=== PATIENT | female | born 1935 | race Asian ===

== ENCOUNTER 2018-04-18 20:11 | Inpatient (IN) | payer OTHER, MEDICAID ==
[2018-04-18] MEDS: ONDANSETRON 4 MG INJ IV (21:25)
[2018-04-18] MEDS: CEFEPIME 1GM/50 ML (PMX) 50 ML IVPB (21:25)
[2018-04-18] MEDS: morphine 4 MG/ML VIAL IV (21:25)
[2018-04-18 21:28] LABS: ADD MAN DIFF? NO
[2018-04-18 21:30] LABS: WHITE BLOOD COUNT 9.6 10^3/ul (4.8-10.8)
[2018-04-18 21:30] LABS: BASOPHIL # 0.1 10^3/ul (0.0-0.1); BASOPHILS % 0.5 % (0.0-2.0); EOSINOPHILS # 0.3 10^3/ul (0.0-0.5); EOSINOPHILS % 2.6 % (0.0-7.0); HEMATOCRIT 35.8 % (37.0-47.0); HEMOGLOBIN 11.2 g/dl (12.0-16.0); LYMPHOCYTES # 1.4 10^3/ul (0.8-2.9); MEAN CORPUSCULAR HEMOGLOBIN 27.7 pg (29.0-33.0); MEAN CORPUSCULAR HGB CONC 31.3 g/dl (32.0-37.0); MEAN CORPUSCULAR VOLUME 88.4 fl (82.0-101.0); MEAN PLATELET VOLUME 9.9 fl (7.4-10.4); MONOCYTE # 0.8 10^3/ul (0.3-0.9); MONOCYTES % 8.3 % (0.0-11.0); NEUTROPHILS % 72.8 % (39.0-77.0); PLATELET COUNT 385 10^3/UL (140-415); RED BLOOD COUNT 4.05 10^6/ul (4.20-5.40); RED CELL DISTRIBUTION WIDTH 13.3 % (11.5-14.5)
[2018-04-18 21:59] LABS: ALANINE AMINOTRANSFERASE 27 IU/L (13-69); ALBUMIN 3.2 g/dl (3.3-4.9); ALBUMIN/GLOBULIN RATIO 0.88; ALKALINE PHOSPHATASE 140 IU/L (42-121); ANION GAP 11 (8-16); ASPARTATE AMINO TRANSFERASE 29 IU/L (15-46); BILIRUBIN,INDIRECT 0.2 mg/dl (0-1.1); BILIRUBIN,TOTAL 0.2 mg/dl (0.2-1.3); BLOOD UREA NITROGEN 19 mg/dl (7-20); CALCIUM 8.4 mg/dl (8.4-10.2); CARBON DIOXIDE 32 mmol/L (21-31); CHLORIDE 99 mmol/L (97-110); CREATININE 0.86 mg/dl (0.44-1.00); GLUCOSE 210 mg/dl (70-220); POTASSIUM 4.7 mmol/L (3.5-5.1); SODIUM 137 mmol/L (135-144); TOTAL PROTEIN 6.8 g/dl (6.1-8.1)
[2018-04-18] MEDS: VANCOMYCIN 1 GM (PMX) 250 ML IVPB (22:18)
[2018-04-18] MEDS: SOD CHLORIDE 0.9% 1,000 ML IV (22:21)
[2018-04-18] MEDS ORDERED: ONDANSETRON 4 MG INJ IV (22:30)
[2018-04-18] MEDS ORDERED: ACETAMINOPHEN 325 MG TAB PO (22:30)
[2018-04-19] MEDS ORDERED: ACETAMINOPHEN 325 MG TAB PO (00:30)
[2018-04-19] MEDS ORDERED: ONDANSETRON 4 MG INJ IV (00:30)
[2018-04-19] MEDS ORDERED: ZOLPIDEM 5 MG TAB PO (00:30)
[2018-04-19] MEDS ORDERED: VANCOMYCIN IV PER PHARMACY XX (00:30)
[2018-04-19] MEDS ORDERED: morphine LIQ (10 MG/5 ML) CUP PO (00:30)
[2018-04-19] MEDS ORDERED: GLUCOSE GEL 15 GRAM TUBE PO ×2 (01:00)
[2018-04-19] MEDS ORDERED: DEXTROSE 50% 50 ML SYRINGE IV ×2 (01:00)
[2018-04-19] MEDS ORDERED: GLUCAGON 1 MG INJ IM (01:00)
[2018-04-19] MEDS ORDERED: GLUCOSE GEL 15 GRAM TUBE BUCCAL (01:00)
[2018-04-19] MEDS: SOD CHLORIDE 0.9% 1,000 ML IV ×2 (01:35→11:41)
[2018-04-19] MEDS: INSULIN ASPART [NOVOLOG] 3 ML PEN SC ×6 (01:43→21:08)
[2018-04-19] MEDS: ACCU-CHEK XX (02:00)
[2018-04-19] MEDS: PIPER-TAZO 2.25 GM (PMX) 50 ML IVPB ×3 (05:26→21:03)
[2018-04-19 05:52] LABS: ADD MAN DIFF? NO
[2018-04-19 06:02] LABS: WHITE BLOOD COUNT 9.1 10^3/ul (4.8-10.8)
[2018-04-19 06:02] LABS: BASOPHIL # 0.1 10^3/ul (0.0-0.1); BASOPHILS % 0.9 % (0.0-2.0); EOSINOPHILS # 0.3 10^3/ul (0.0-0.5); EOSINOPHILS % 2.9 % (0.0-7.0); HEMATOCRIT 36.3 % (37.0-47.0); HEMOGLOBIN 11.5 g/dl (12.0-16.0); LYMPHOCYTES # 1.6 10^3/ul (0.8-2.9); LYMPHOCYTES % 17.3 % (15.0-51.0); MEAN CORPUSCULAR HEMOGLOBIN 27.8 pg (29.0-33.0); MEAN CORPUSCULAR HGB CONC 31.7 g/dl (32.0-37.0); MEAN CORPUSCULAR VOLUME 87.9 fl (82.0-101.0); MEAN PLATELET VOLUME 9.8 fl (7.4-10.4); MONOCYTE # 0.9 10^3/ul (0.3-0.9); MONOCYTES % 9.7 % (0.0-11.0); NEUTROPHIL # 6.2 10^3/ul (1.6-7.5); NEUTROPHILS % 68.5 % (39.0-77.0); PLATELET COUNT 383 10^3/UL (140-415); RED BLOOD COUNT 4.13 10^6/ul (4.20-5.40); RED CELL DISTRIBUTION WIDTH 13.5 % (11.5-14.5)
[2018-04-19 06:30] LABS: ALANINE AMINOTRANSFERASE 26 IU/L (13-69); ALBUMIN 3.3 g/dl (3.3-4.9); ALBUMIN/GLOBULIN RATIO 0.89; ALKALINE PHOSPHATASE 141 IU/L (42-121); ANION GAP 12 (8-16); ASPARTATE AMINO TRANSFERASE 26 IU/L (15-46); BILIRUBIN,INDIRECT 0.3 mg/dl (0-1.1); BILIRUBIN,TOTAL 0.3 mg/dl (0.2-1.3); BLOOD UREA NITROGEN 16 mg/dl (7-20); CALCIUM 8.6 mg/dl (8.4-10.2); CARBON DIOXIDE 31 mmol/L (21-31); CHLORIDE 103 mmol/L (97-110); CREATININE 0.78 mg/dl (0.44-1.00); GLUCOSE 139 mg/dl (70-220); POTASSIUM 4.3 mmol/L (3.5-5.1); SODIUM 142 mmol/L (135-144)
[2018-04-19] MEDS: NEUTRA-PHOS 250 MG PACKET PO ×4 (08:03→17:24)
[2018-04-19] MEDS: MAGNESIUM OXIDE 400 MG TAB PO ×2 (09:00→21:05)
[2018-04-19] MEDS: PENTOXIFYLLINE (SR) 400 MG TAB PO (09:00)
[2018-04-19] MEDS: GABAPENTIN 300 MG CAP PO ×2 (09:06→21:04)
[2018-04-19] MEDS: METOPROLOL 25 MG TAB PO ×2 (09:06→21:12)
[2018-04-19] MEDS: LISINOPRIL 20 MG TAB PO (09:06)
[2018-04-19 17:24] LABS: INR 1.03; PROTIME 13.6 Sec (11.9-14.9); PT RATIO 1.1
[2018-04-19 17:25] LABS: PARTIAL THROMBOPLASTIN TIME 40.3 Sec (25.0-35.0)
[2018-04-19] MEDS: ATORVASTATIN 40 MG TAB PO (21:03)
[2018-04-19] MEDS: FAMOTIDINE 20 MG TAB PO (21:04)
[2018-04-19] MEDS: VANCOMYCIN 750 MG in DEXTROSE 5% 150 ML IVPB (22:17)
[2018-04-20] MEDS: INSULIN ASPART [NOVOLOG] 3 ML PEN SC ×6 (01:23→21:00)
[2018-04-20] MEDS: ACCU-CHEK XX (01:25)
[2018-04-20] MEDS: PIPER-TAZO 2.25 GM (PMX) 50 ML IVPB ×3 (05:48→22:18)
[2018-04-20] MEDS: SOD CHLORIDE 0.9% 1,000 ML IV ×3 (05:48→14:04)
[2018-04-20 06:07] LABS: ADD MAN DIFF? NO
[2018-04-20 06:11] LABS: WHITE BLOOD COUNT 7.9 10^3/ul (4.8-10.8)
[2018-04-20 06:11] LABS: BASOPHIL # 0.1 10^3/ul (0.0-0.1); EOSINOPHILS # 0.2 10^3/ul (0.0-0.5); HEMATOCRIT 36.6 % (37.0-47.0); HEMOGLOBIN 11.5 g/dl (12.0-16.0); LYMPHOCYTES # 1.4 10^3/ul (0.8-2.9); LYMPHOCYTES % 17.9 % (15.0-51.0); MEAN CORPUSCULAR HEMOGLOBIN 27.9 pg (29.0-33.0); MEAN CORPUSCULAR HGB CONC 31.4 g/dl (32.0-37.0); MEAN CORPUSCULAR VOLUME 88.8 fl (82.0-101.0); MONOCYTE # 0.8 10^3/ul (0.3-0.9); MONOCYTES % 10.7 % (0.0-11.0); NEUTROPHIL # 5.3 10^3/ul (1.6-7.5); NEUTROPHILS % 66.9 % (39.0-77.0); PLATELET COUNT 387 10^3/UL (140-415); RED BLOOD COUNT 4.12 10^6/ul (4.20-5.40); RED CELL DISTRIBUTION WIDTH 13.4 % (11.5-14.5)
[2018-04-20 06:35] LABS: ANION GAP 11 (8-16); BLOOD UREA NITROGEN 13 mg/dl (7-20); CALCIUM 8.7 mg/dl (8.4-10.2); CARBON DIOXIDE 32 mmol/L (21-31); CHLORIDE 106 mmol/L (97-110); GLUCOSE 138 mg/dl (70-220); POTASSIUM 4.4 mmol/L (3.5-5.1); SODIUM 145 mmol/L (135-144)
[2018-04-20 06:38] LABS: MAGNESIUM 1.9 mg/dl (1.7-2.5)
[2018-04-20 06:38] LABS: PHOSPHORUS 3.5 mg/dl (2.5-4.9)
[2018-04-20 07:08] LABS: HEMOGLOBIN A1C 6.7 % (0-5.9)
[2018-04-20] MEDS: NEUTRA-PHOS 250 MG PACKET PO ×3 (08:15→18:00)
[2018-04-20] MEDS: METOPROLOL 25 MG TAB PO ×2 (08:50→21:20)
[2018-04-20] MEDS: MAGNESIUM OXIDE 400 MG TAB PO ×2 (08:55→21:20)
[2018-04-20] MEDS: GABAPENTIN 300 MG CAP PO ×2 (08:55→21:20)
[2018-04-20] MEDS: LISINOPRIL 20 MG TAB PO (08:56)
[2018-04-20] MEDS: PENTOXIFYLLINE (SR) 400 MG TAB PO (08:56)
[2018-04-20] MEDS: HYDROCODONE/APAP (5/325) TAB PO ×3 (09:49→21:15)
[2018-04-20] MEDS ORDERED: HEPARIN 1000 UNITS/ML 10 ML INJ (11:44)
[2018-04-20] MEDS ORDERED: IODIXANOL LOCM 100 ML BTL (11:44)
[2018-04-20] MEDS ORDERED: HEPARIN 1000 UNITS/NS (A-LINE) 1,000 ML (11:44)
[2018-04-20] MEDS ORDERED: MIDAZOLAM 1 MG/ML 2 ML INJ (11:44)
[2018-04-20] MEDS ORDERED: FENTAnyl 50 MCG/ML VIAL (11:44)
[2018-04-20] MEDS ORDERED: LIDOCAINE 1% (MDV) 20 ML INJ (11:44)
[2018-04-20] MEDS ORDERED: IODIXANOL LOCM 50 ML BTL (13:34)
[2018-04-20] MEDS: ATORVASTATIN 40 MG TAB PO (21:19)
[2018-04-20] MEDS: FAMOTIDINE 20 MG TAB PO (21:20)
[2018-04-20] MEDS: VANCOMYCIN 750 MG in DEXTROSE 5% 150 ML IVPB (23:15)
[2018-04-21] MEDS: ACCU-CHEK XX (02:00)
[2018-04-21] MEDS: SOD CHLORIDE 0.9% 1,000 ML IV ×2 (02:30→06:30)
[2018-04-21] MEDS: PIPER-TAZO 2.25 GM (PMX) 50 ML IVPB ×2 (06:26→14:19)
[2018-04-21] MEDS: INSULIN ASPART [NOVOLOG] 3 ML PEN SC ×2 (08:15→12:51)
[2018-04-21] MEDS: NEUTRA-PHOS 250 MG PACKET PO ×2 (08:21→12:15)
[2018-04-21] MEDS: PENTOXIFYLLINE (SR) 400 MG TAB PO (08:21)
[2018-04-21] MEDS: GABAPENTIN 300 MG CAP PO (08:21)
[2018-04-21] MEDS: MAGNESIUM OXIDE 400 MG TAB PO (08:22)
[2018-04-21] MEDS: METOPROLOL 25 MG TAB PO (08:23)
[2018-04-21] MEDS: LISINOPRIL 20 MG TAB PO (08:23)
[2018-04-21 08:28] LABS: ADD MAN DIFF? NO
[2018-04-21 08:31] LABS: WHITE BLOOD COUNT 8.1 10^3/ul (4.8-10.8)
[2018-04-21 08:31] LABS: BASOPHIL # 0.1 10^3/ul (0.0-0.1); BASOPHILS % 0.7 % (0.0-2.0); EOSINOPHILS # 0.3 10^3/ul (0.0-0.5); EOSINOPHILS % 3.5 % (0.0-7.0); HEMATOCRIT 38.3 % (37.0-47.0); LYMPHOCYTES # 1.2 10^3/ul (0.8-2.9); LYMPHOCYTES % 15.4 % (15.0-51.0); MEAN CORPUSCULAR HEMOGLOBIN 27.7 pg (29.0-33.0); MEAN CORPUSCULAR HGB CONC 31.3 g/dl (32.0-37.0); MEAN CORPUSCULAR VOLUME 88.5 fl (82.0-101.0); MEAN PLATELET VOLUME 10.2 fl (7.4-10.4); MONOCYTE # 0.8 10^3/ul (0.3-0.9); MONOCYTES % 9.8 % (0.0-11.0); NEUTROPHIL # 5.7 10^3/ul (1.6-7.5); NEUTROPHILS % 70.4 % (39.0-77.0); PLATELET COUNT 380 10^3/UL (140-415); RED BLOOD COUNT 4.33 10^6/ul (4.20-5.40); RED CELL DISTRIBUTION WIDTH 13.8 % (11.5-14.5)
[2018-04-21 08:49] LABS: PHOSPHORUS 3.3 mg/dl (2.5-4.9)
[2018-04-21 08:49] LABS: ANION GAP 14 (8-16); BLOOD UREA NITROGEN 14 mg/dl (7-20); CALCIUM 8.6 mg/dl (8.4-10.2); CARBON DIOXIDE 31 mmol/L (21-31); CHLORIDE 104 mmol/L (97-110); CREATININE 0.81 mg/dl (0.44-1.00); GLUCOSE 142 mg/dl (70-220); MAGNESIUM 1.8 mg/dl (1.7-2.5); POTASSIUM 4.4 mmol/L (3.5-5.1); SODIUM 145 mmol/L (135-144)
[2018-04-21] MEDS: HYDROCODONE/APAP (5/325) TAB PO ×2 (09:36→14:38)
== END 2018-04-21 17:05 | DRG 271 ==
LOC: E/R 20:11 → MS2 22:15
PROC: 04CK3ZZ Extirpation of Matter from Right Femoral Artery, Percutaneous Approach (ICD-10-PCS; principal; 2018-04-20 10:30)
PROC: 047K3ZZ Dilation of Right Femoral Artery, Percutaneous Approach (ICD-10-PCS; 2018-04-20 10:30)
PROC: B41FYZZ Fluoroscopy of Right Lower Extremity Arteries using Other Contrast (ICD-10-PCS; 2018-04-20 10:30)
DX: E11.52 Type 2 diabetes mellitus with diabetic peripheral angiopathy with gangrene (principal); I70.268 Atherosclerosis of native arteries of extremities with gangrene, other extremity; E11.43 Type 2 diabetes mellitus with diabetic autonomic (poly)neuropathy; I10 Essential (primary) hypertension; E78.5 Hyperlipidemia, unspecified; L98.499 Non-pressure chronic ulcer of skin of other sites with unspecified severity; Z89.421 Acquired absence of other right toe(s); Z79.4 Long term (current) use of insulin; Z79.84 Long term (current) use of oral hypoglycemic drugs
CPT/HCPCS: 36415; 73630; 75710; 76937; 80048; 80053; 82962; 83036; 83735; 84100; 85025; 85610; 85730; 87040; 87081; 93005; 93306; 96374; 96375; 99285-25

== ENCOUNTER 2018-04-26 09:37 | Inpatient (IN) | payer OTHER, MEDICAID ==
[2018-04-26] MEDS ORDERED: MIDAZOLAM 1 MG/ML 2 ML INJ (13:28)
[2018-04-26] MEDS ORDERED: LIDOCAINE 2% (SDV) 5 ML INJ (13:39)
[2018-04-26] MEDS ORDERED: PROPOFOL 20 ML (13:39)
[2018-04-26] MEDS ORDERED: FAMOTIDINE 20 MG INJ (13:39)
[2018-04-26] MEDS ORDERED: ONDANSETRON 4 MG INJ (13:39)
[2018-04-26] MEDS ORDERED: CEFAZOLIN 1 GM INJ (13:40)
[2018-04-26] MEDS ORDERED: FENTAnyl 50 MCG/ML VIAL (13:43)
[2018-04-26] MEDS ORDERED: HYDROmorphONE 2 MG/ML SYG (14:23)
[2018-04-26] MEDS ORDERED: DIPHENHYDRAMINE 50 MG INJ IV (14:30)
[2018-04-26] MEDS ORDERED: MEPERIDINE 25 MG INJ IV (14:30)
[2018-04-26] MEDS ORDERED: FENTAnyl 50 MCG/ML VIAL IV (14:30)
[2018-04-26] MEDS ORDERED: ONDANSETRON 4 MG INJ IV ×3 (14:30→16:00)
[2018-04-26] MEDS ORDERED: PROCHLORPERAZINE 10 MG INJ IV (14:30)
[2018-04-26] MEDS ORDERED: PHENYLephrine (100 MCG/ML) 5ML SYG (14:39)
[2018-04-26] MEDS: LABETALOL HCL 20MG INJ IV (15:15)
[2018-04-26] MEDS: HYDROmorphONE (0.2 MG/ML) 10ML SYG IV ×2 (15:19→15:40)
[2018-04-26] MEDS ORDERED: hydrALAzine 20 MG INJ IV (15:30)
[2018-04-26] MEDS ORDERED: traMADol 50 MG TAB PO (16:00)
[2018-04-26] MEDS ORDERED: GLUCOSE GEL 15 GRAM TUBE PO ×2 (16:00)
[2018-04-26] MEDS ORDERED: NACL 0.9% 3 ML SYG IV (16:00)
[2018-04-26] MEDS ORDERED: DOCUSATE SODIUM 100 MG CAP PO (16:00)
[2018-04-26] MEDS ORDERED: GLUCOSE GEL 15 GRAM TUBE BUCCAL (16:00)
[2018-04-26] MEDS ORDERED: ACETAMINOPHEN 325 MG TAB PO (16:00)
[2018-04-26] MEDS ORDERED: DEXTROSE 50% 50 ML SYRINGE IV ×2 (16:00)
[2018-04-26] MEDS ORDERED: GLUCAGON 1 MG INJ IM (16:00)
[2018-04-26] MEDS ORDERED: INSULIN ASPART [NOVOLOG] 3 ML PEN SC (18:00)
[2018-04-26] MEDS: morphine 2 MG INJ IV ×2 (18:08→21:24)
[2018-04-26] MEDS: INSULIN ASPART [NOVOLOG] 3 ML PEN SC ×2 (18:36→21:23)
[2018-04-26] MEDS: LACTATED RINGER'S 1,000 ML IV ×2 (18:36→21:18)
[2018-04-26] MEDS: GABAPENTIN 300 MG CAP PO (21:00)
[2018-04-26] MEDS: ATORVASTATIN 40 MG TAB PO (21:00)
[2018-04-26] MEDS: MAGNESIUM OXIDE 400 MG TAB PO (21:00)
[2018-04-26] MEDS: METOPROLOL 25 MG TAB PO (21:20)
[2018-04-26] MEDS: HEPARIN 5,000 UNIT/0.5 ML VIAL SC (21:50)
[2018-04-27] MEDS: LACTATED RINGER'S 1,000 ML IV ×4 (01:55→17:30)
[2018-04-27] MEDS: ACCU-CHEK XX (03:00)
[2018-04-27] MEDS: morphine 2 MG INJ IV ×2 (03:55→07:28)
[2018-04-27 05:52] LABS: ADD MAN DIFF? NO
[2018-04-27 06:00] LABS: WHITE BLOOD COUNT 13.2 10^3/ul (4.8-10.8)
[2018-04-27 06:00] LABS: BASOPHIL # 0.1 10^3/ul (0.0-0.1); BASOPHILS % 0.5 % (0.0-2.0); EOSINOPHILS % 0.2 % (0.0-7.0); HEMATOCRIT 31.8 % (37.0-47.0); HEMOGLOBIN 10.1 g/dl (12.0-16.0); LYMPHOCYTES % 7.9 % (15.0-51.0); MEAN CORPUSCULAR HEMOGLOBIN 27.8 pg (29.0-33.0); MEAN CORPUSCULAR HGB CONC 31.8 g/dl (32.0-37.0); MEAN CORPUSCULAR VOLUME 87.6 fl (82.0-101.0); MEAN PLATELET VOLUME 11.4 fl (7.4-10.4); MONOCYTE # 0.9 10^3/ul (0.3-0.9); MONOCYTES % 7.1 % (0.0-11.0); NEUTROPHILS % 83.8 % (39.0-77.0); PLATELET COUNT 400 10^3/UL (140-415); RED BLOOD COUNT 3.63 10^6/ul (4.20-5.40); RED CELL DISTRIBUTION WIDTH 13.9 % (11.5-14.5)
[2018-04-27] MEDS: HEPARIN 5,000 UNIT/0.5 ML VIAL SC ×3 (06:00→21:26)
[2018-04-27 06:25] LABS: ANION GAP 14 (8-16); BLOOD UREA NITROGEN 13 mg/dl (7-20); CARBON DIOXIDE 30 mmol/L (21-31); CHLORIDE 100 mmol/L (97-110); CREATININE 0.68 mg/dl (0.44-1.00); GLUCOSE 205 mg/dl (70-220); POTASSIUM 4.1 mmol/L (3.5-5.1); SODIUM 140 mmol/L (135-144)
[2018-04-27] MEDS: GABAPENTIN 300 MG CAP PO ×2 (08:11→21:18)
[2018-04-27] MEDS: MAGNESIUM OXIDE 400 MG TAB PO ×2 (08:11→21:18)
[2018-04-27] MEDS: PENTOXIFYLLINE (SR) 400 MG TAB PO (08:11)
[2018-04-27] MEDS: NEUTRA-PHOS 250 MG PACKET PO ×3 (08:11→17:30)
[2018-04-27] MEDS: LISINOPRIL 20 MG TAB PO (08:12)
[2018-04-27] MEDS: METOPROLOL 25 MG TAB PO ×2 (08:12→21:20)
[2018-04-27] MEDS: INSULIN ASPART [NOVOLOG] 3 ML PEN SC ×4 (08:16→21:18)
[2018-04-27] MEDS ORDERED: morphine 2 MG INJ IV (10:00)
[2018-04-27] MEDS: HYDROmorphONE 0.5 MG/0.5 ML SYG IV (13:37)
[2018-04-27] MEDS ORDERED: morphine LIQ (10 MG/5 ML) CUP PO (15:00)
[2018-04-27] MEDS: HYDROCODONE/APAP (5/325) TAB PO (18:37)
[2018-04-27] MEDS: ATORVASTATIN 40 MG TAB PO (21:18)
[2018-04-28] MEDS: ACCU-CHEK XX (03:00)
[2018-04-28] MEDS: LACTATED RINGER'S 1,000 ML IV ×4 (03:06→17:55)
[2018-04-28] MEDS: HEPARIN 5,000 UNIT/0.5 ML VIAL SC ×3 (06:00→14:42)
[2018-04-28] MEDS: INSULIN ASPART [NOVOLOG] 3 ML PEN SC ×3 (08:32→18:01)
[2018-04-28] MEDS: MAGNESIUM OXIDE 400 MG TAB PO (08:39)
[2018-04-28] MEDS: PENTOXIFYLLINE (SR) 400 MG TAB PO (08:39)
[2018-04-28] MEDS: LISINOPRIL 20 MG TAB PO (08:39)
[2018-04-28] MEDS: NEUTRA-PHOS 250 MG PACKET PO ×3 (08:40→18:00)
[2018-04-28] MEDS: METOPROLOL 25 MG TAB PO (08:40)
[2018-04-28] MEDS: GABAPENTIN 300 MG CAP PO (08:46)
[2018-04-28] MEDS: HYDROCODONE/APAP (5/325) TAB PO (08:50)
[2018-04-28] MEDS ORDERED: INSULIN ASPART [NOVOLOG] 3 ML PEN SC (18:00)
== END 2018-04-28 19:10 | DRG 241 ==
LOC: REC 09:37 → MS2 17:25
PROVIDERS: Surgery
PROC: 0Y6H0Z1 Detachment at Right Lower Leg, High, Open Approach (ICD-10-PCS; principal; 2018-04-26 12:00)
DX: I70.261 Atherosclerosis of native arteries of extremities with gangrene, right leg (principal); I10 Essential (primary) hypertension; E11.9 Type 2 diabetes mellitus without complications; E78.5 Hyperlipidemia, unspecified; Z89.421 Acquired absence of other right toe(s)
CPT/HCPCS: 71045; 80048; 82962; 85025; 87081; 87086; 88300; 97110; 97163